=== PATIENT | female | born 1965 | race Caucasian/White ===

== ENCOUNTER → 2016-10-10 | Outpatient (CLI) | payer BC ==
--- NOTE | 2016-10-10 14:47 | CT ---
EXAMINATION TYPE: CT iac wo/w con DATE OF EXAM: 10/10/2016 COMPARISON: NONE HISTORY: Hearing loss and dizziness. CT DLP: 300 mGycm Automated exposure control for dose reduction was used. CONTRAST: CT scan of the IACs is performed without and with IV Contrast, patient injected with 100 mL of Omnipa que 300. FINDINGS: Visualized intracranial structures are normal. Visualized portions of the paranasal sinuses and mastoids appear clear. Middle and inner ear structures appear normal. The mastoid air cells are clear. There is no widening of the porus acoustic this on either side. There is no enhancing CP angle mass l esion or intracanalicular lesion. There is no abnormal enhancement. IMPRESSION: NORMAL CT SCAN OF THE IACS.
== END | disposition home or self-care (01) ==
LOC: RADCTMAIN 13:58
PROVIDERS: ATTEND Otolaryngology
DX: H93.19 Tinnitus, unspecified ear (principal); H90.5 Unspecified sensorineural hearing loss; R42 Dizziness and giddiness
CPT/HCPCS: 70482; Q9967

== ENCOUNTER → 2019-01-10 | Outpatient (CLI) | payer BC ==
--- NOTE | 2019-01-11 13:11 | MM ---
Reason for exam: screening (asymptomatic). Baseline mammogram. Physical Findings: Nurse did not find any significant physical abnormalities on exam. MG Screening Mammo w CAD Bilateral CC and MLO view(s) were taken. The breast tissue is heterogeneously dense. This may lower the sensitivity of mammography. Benign appearing bilateral calcifications. No suspicious abnormality. These results were verbally communicated with the patient and result sheet given to the patient on 01/10/19. ASSESSMENT: Benign, BI-RAD 2 RECOMMENDATION: Routine screening mammogram of both breasts in 1 year.
== END | disposition home or self-care (01) ==
LOC: RADMAMWWP 06:57
PROVIDERS: ATTEND Family Medicine
DX: Z12.31 Encounter for screening mammogram for malignant neoplasm of breast (principal)
CPT/HCPCS: 77067

== ENCOUNTER → 2021-12-18 | Outpatient (CLI) | payer BC ==
--- NOTE | 2021-12-20 18:44 | MM ---
Reason for Exam: Screening (asymptomatic). Last mammogram was performed 2 year(s) and 11 month(s) ago. Patient History: Menarche at age 12. First Full-Term at age 19. Perimenopausal. Last menstrual period: 08/08/2021 Risk Values: Isa 5 year model risk: 1.1%. NCI Lifetime model risk: 7.1%. Prior Study Comparison: 01/10/2019 Bilateral Screening Mammogram, [facility]. Tissue Density: There are scattered fibroglandular densities. Findings: Analyzed By CAD. There is no suspicious group of microcalcifications or new suspicious mass in either breast. Overall Assessment: Negative, BI-RAD 1 Management: Screening Mammogram of both breasts in 1 year. A clinical breast exam by your physician is recommended on an annual basis and results should be correlated with mammographic findings. Electronically signed and approved by: Delvin Merchant DO
== END | disposition home or self-care (01) ==
LOC: RADMAMWWP 10:47
PROVIDERS: ATTEND Family Medicine
DX: Z12.31 Encounter for screening mammogram for malignant neoplasm of breast (principal)
CPT/HCPCS: 77067

== ENCOUNTER → 2023-04-17 | Outpatient (CLI) | payer BC ==
--- NOTE | 2023-04-17 21:38 | MR ---
EXAMINATION TYPE: MR lumbar spine wo con DATE OF EXAM: 04/17/2023 COMPARISON: None HISTORY: Low back pain that radiates down right leg CONTRAST: 0 mL intravenous Gadobutrol. TECHNIQUE: Multiplanar, multisequence images of the lumbar spine were acquired. FINDINGS: Cord terminates at the L1 level. Disc heights appear preserved. There is some disc desicca tion L5-S1. Remaining discs have normal hydration. L5-S1: There is facet hypertrophy on the right at L5-S1. Some posterior lateral exiting nerve root co ntact is evident. Mild bilateral foraminal narrowing is present. 4 5: Bilateral facet hypertrophy is present L4-5 with some ligamentum flavum laxity. Mild posterior l ateral thecal sac contact is present. No spinal canal stenosis or neural foraminal stenosis is eviden t. Remaining levels appear normal without focal disc herniation significant disc bulge spinal canal sten osis or neural foraminal stenosis. IMPRESSION: 1. Facet hypertrophy right L5-S1 with exiting nerve root contact. Correlate with radicular symptoms
== END | disposition home or self-care (01) ==
LOC: RADMRIMAIN 20:00
PROVIDERS: ATTEND Family Medicine
DX: M51.16 Intervertebral disc disorders with radiculopathy, lumbar region (principal); M47.26 Other spondylosis with radiculopathy, lumbar region
CPT/HCPCS: 72148

== ENCOUNTER → 2023-06-18 | Outpatient (CLI) | payer BC ==
[2023-06-19 02:44] LABS: Basophils # (A) 0.03 X 10*3/uL (0.00-0.10); Basophils % (A) 0.3 %; Eosinophils # (A) 0.06 X 10*3/uL (0.04-0.35); Eosinophils % (A) 0.7 %; HGB 15.1 g/dL (12.0-15.0); Lymphocytes # (A) 3.88 X 10*3/uL (0.90-5.00); Lymphocytes % (A) 42.1 %; MCH 31.9 pg (27.0-32.0); MCHC 33.6 g/dL (32.0-37.0); MCV 95.1 FL (80.0-97.0); Mean Platelet Volume 8.7 FL (9.5-12.2); Monocytes # (A) 0.64 X 10*3/uL (0.20-1.00); Monocytes % (A) 6.9 %; NRBC Per 100 WBC 0 X 10*3/uL (0.00-0.01); Neutrophils # (A) 4.59 X 10*3/uL (1.80-7.70); Neutrophils % (A) 49.8 %; Platelet Count 410 X 10*3/uL (140-440); RBC 4.73 X 10*6/uL (4.10-5.20); WBC 9.22 X 10*3/uL (4.50-10.00)
== END | disposition home or self-care (01) ==
LOC: LABWHC1 14:15
PROVIDERS: ATTEND Obstetrics & Gynecology Obstetrics
DX: Z01.818 Encounter for other preprocedural examination (principal); R87.613 High grade squamous intraepithelial lesion on cytologic smear of cervix (HGSIL)
CPT/HCPCS: 36415; 85025

== ENCOUNTER 2023-06-23 08:06 | Day surgery (SDC) | payer BC ==
[~2023-06-23 08:06] MED LIST: MIDAZOLAM 2 MG/2 ML VIAL IV PRN; Pre Op ABX Message 1 EACH MISC MISCELLANE ONE; SCOPOLAMINE 1 MG/72 HR PATCH TRANSDERM ONE; fentaNYL (PF) 50 MCG/ML 2 ML AMP IV PRN
[2023-06-23] MEDS: LACTATED RINGERS 1,000 ML IV SCH (08:42)
[2023-06-23] MEDS: ONDANSETRON 4 MG/2 ML VIAL IVP ONE (08:57)
[2023-06-23] MEDS: DEXAMETHASONE SOD PHOSPHATE 4 MG/ML 1 ML VIAL IV ONE (08:57)
[2023-06-23] MEDS ORDERED: LIDOCAINE 1% INJ 10MG/ML (20 ML MDV) ONE (09:16)
[2023-06-23] MEDS ORDERED: PROPOFOL 10 MG/ML 20 ML VIAL IV ONE (09:16)
[2023-06-23] MEDS ORDERED: KETOROLAC 15 MG/ML 1 ML VIAL ONE (09:16)
[2023-06-23] MEDS ORDERED: fentaNYL (PF) 50 MCG/ML 2 ML AMP ONE (09:16)
[2023-06-23] MEDS ORDERED: MIDAZOLAM 2 MG/2 ML VIAL ONE (09:16)
[2023-06-23] MEDS: LIDOCAINE 1%-EPI 1:100,000 50 ML VIAL SQ ONE (09:36)
[2023-06-23] MEDS: IODINE/POTASSIUM IODIDE 14 ML BOTTLE TOPICAL ONE (09:37)
[2023-06-23] MEDS: FERRIC SUBSULFATE (MONSELS) JAR TOPICAL ONE (09:45)
--- NOTE | 2023-06-23 10:11 | P.OP ---
Date of Procedure: 06/23/23 Preoperative Diagnosis: ERIC-2 Postoperative Diagnosis: Same Procedure(s) Performed: Cold knife cone Surgeon: Millie Field Estimated Blood Loss (ml): 10 IV fluids (ml): 400 Urine output (ml): 100 Pathology: other (Cervical specimen) Condition: stable Disposition: PACU Indications for Procedure: Colposcopy with findings of ERIC-2, positive ECC for ERIC-2 Operative Findings: Normal-appearing cervix, cone specimen to pathology Description of Procedure: Patient is taken back to the operating suite where general anesthesia is obtained without difficulty by the anesthesia department. Patient is prepped and draped in normal sterile fashion in the dorsolithotomy position. A red rubber catheter was used to drain the bladder of clear yellow urine. A weighted speculum space in the posterior vaginal vault the anterior lip of the cervix was visualized and grasped with a single-tooth tenaculum. Stay sutures were then placed with 0 Vicryl at 3 and 6:00. The cervix is then injected with 1% lidocaine with epinephrine circumferentially. Scalpel was then used to sharply excise a cone segment of the cervix. The Bovie was used to obtain cautery. Monsel solution was placed on the cervical stump. No bleeding is appreciated. The single-tooth tenaculum was taken off of the anterior lip of the cervix hemostasis was appreciated. All counts were noted be correct x 2 at the end of the procedure. Patient tolerated procedure well and was taken to the recovery room awake in stable condition.
[2023-06-23 10:12] VITALS: RESP 16; TEMP 98.1
[2023-06-23 11:21] VITALS: BP 135/85; PULSE 63
== END 2023-06-23 11:43 | disposition home or self-care (01) ==
LOC: OR 08:06
PROVIDERS: ATTEND Obstetrics & Gynecology Obstetrics
DX: R87.613 High grade squamous intraepithelial lesion on cytologic smear of cervix (HGSIL) (principal); E07.9 Disorder of thyroid, unspecified; F41.9 Anxiety disorder, unspecified; F32.A Depression, unspecified; Z88.0 Allergy status to penicillin; Z88.5 Allergy status to narcotic agent; Z82.49 Family history of ischemic heart disease and other diseases of the circulatory system; Z79.899 Other long term (current) drug therapy
CPT/HCPCS: 88307; 57520; J2250; J1100; J2405; J2001; J3010; J1885; J2704

== ENCOUNTER → 2024-06-13 | Outpatient (CLI) | payer BC ==
--- NOTE | 2024-06-16 13:10 | MM ---
Reason for Exam: Screening (asymptomatic). Last mammogram was performed 2 year(s) and 6 month(s) ago. Patient History: Menarche at age 12. First Full-Term at age 19. Perimenopausal. Risk Values: Isa 5 year model risk: 1.2%. NCI Lifetime model risk: 6.7%. Prior Study Comparison: 01/10/2019 Bilateral Screening Mammogram, [facility]. 12/18/2021 Bilateral MG screening mammo w CAD, [facility]. Tissue Density: There are scattered areas of fibroglandular density. Findings: Analyzed By CAD. There is no suspicious group of microcalcifications or new suspicious mass in either breast. Overall Assessment: Benign, BI-RAD 2 Management: Screening Mammogram of both breasts in 1 year. . Patient should continue monthly self-breast exams. A clinical breast exam by your physician is recommended on an annual basis. This exam should not preclude additional follow-up of suspicious palpable abnormalities. Note on Isa scores and lifetime risk: 1. A Isa score greater than 3% is considered moderate risk. If this is the case, consider specialist referral to assess eligibility for a risk reducing agent. 2. If overall lifetime risk for the development of breast cancer is 20% or higher, the patient may qualify for future screening with alternating mammogram and breast MRI. [facility], , 06/13/2024 1:33 PM. Electronically signed and approved by: Gopal Celeste M.D. Radiologis
== END | disposition home or self-care (01) ==
LOC: RADMAMWWP 12:59
PROVIDERS: ATTEND Family Medicine
DX: Z12.31 Encounter for screening mammogram for malignant neoplasm of breast (principal); R92.323 Mammographic fibroglandular density, bilateral breasts
CPT/HCPCS: 77067